=== PATIENT | female | born 1960 | race American Indian/Alaskan Native ===

== ENCOUNTER 2016-08-09 12:44 | Emergency (ER) | payer OTHER ==
[2016-08-09 13:39] VITALS: BP 174/99
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
== END 2016-08-09 22:30 | disposition home or self-care (01) ==
LOC: ED 12:44
DX: S06.0X1A Concussion with loss of consciousness of 30 minutes or less, initial encounter (principal); V49.59XA Passenger injured in collision with other motor vehicles in traffic accident, initial encounter; Y93.9 Activity, unspecified; Y92.89 Other specified places as the place of occurrence of the external cause; Y99.9 Unspecified external cause status
CPT/HCPCS: 70450; 72125